=== PATIENT | male | born 1980 | race Caucasian/White ===

== ENCOUNTER 2018-01-06 12:45 | Emergency (ER) | payer OTHER, MEDICARE ==
[2018-01-06] MEDS ORDERED: ACETAMINOPHEN 325 MG TABLET PO ONE (12:49)
--- NOTE | 2018-01-06 13:23 | ER Document Report ---
HPI - HPI Pain Level: 1 Notes: Patient is a 37-year-old male no significant past medical history who presents to the ED complaining of pain to his right fifth metacarpal of the hand status post punching a desk prior to arrival. Patient states that the pain does not radiate. He has not noticed any obvious bruising, but has noticed some swelling to that area. Patient states that he has had a fracture previously in the same area from punching an object in the past. Denies any drug allergies. Denies any headache, fever, URI, sore throat, chest pain, palpitations, syncope , cough, shortness of breath, wheeze, dyspnea, abdominal pain, nausea/vomiting/ diarrhea, urinary retention, dysuria, hematuria, numbness/tingling, muscle paralysis/weakness, or rash. - ROS Systems Reviewed and Negative: Yes All other systems reviewed and negative Past Medical History - Social History Smoking Status: Former Smoker Family History: Reviewed & Not Pertinent Vertical Provider Document - CONSTITUTIONAL Agree With Documented VS: Yes Notes: PHYSICAL EXAMINATION: GENERAL: Well-appearing, well-nourished and in no acute distress. LUNGS: Breath sounds clear to auscultation bilaterally and equal. No wheezes rales or rhonchi. HEART: Regular rate and rhythm without murmurs, rubs, gallops. Musculoskeletal: Rt hand: + mild swelling to the 5th metacarpal distally. + associated tenderness. N/V intact distal. FROM to passive/active. Strength 5+/ 5. No other tenderness to the hand/wrist. Extremities: No cyanosis, clubbing, or edema b/l. Peripheral pulses 2+. Capillary refill less than 3 seconds. NEUROLOGICAL: Normal speech, normal gait. Normal sensory, motor exams PSYCH: Normal mood, normal affect. SKIN: Warm, Dry, normal turgor, no rashes or lesions noted. Course - Re-evaluation Re-evalutation: 01/06/18 16:05 Patient is an afebrile, well-hydrated, 37-year-old male who presents to the ED with a fracture to the 5th 5th metacarpal distally in setting of old fracture. Vitals are acceptable without any significant tachycardia, tachypnea, or hypoxia. PE is otherwise unremarkable for any neurovascular compromise, obvious tendon/ligament rupture, open fracture, septic joint. See XR result. Splint applied today. Patient given tylenol PO. Patient is nontoxic- appearing. No other labs or imaging warranted at this time based on H&P. Pt given norco dispense pack. Conservative measures otherwise for symptoms. Recheck with your PCM in 3-5 days. Call orthopedics tomorrow to schedule an appointment for further evaluation and management. Return to the ED with any worsening/concerning symptoms otherwise as reviewed in discharge. Patient is in agreement. delay in care/treatment due to >2hr delay with Radiology (?busy) - Vital Signs Vital signs: Temp Pulse Resp BP Pulse Ox 98.4 F 81 16 128/86 H 96 01/06/18 12:58 01/06/18 12:58 01/06/18 12:58 01/06/18 12:58 01/06/18 12:58 Procedures - Immobilization Right Hand Time completed: 16:05 Pre-Proc Neuro Vasc Exam: Normal Immobilizer type: Ulnar - ulnar gutter Performed by: PCT Post-Proc Neuro Vasc Exam: Normal, Unchanged from pre-exam Discharge - Discharge Clinical Impression: Closed fracture of 5th metacarpal Qualifiers: Encounter type: initial encounter Metacarpal location: unspecified portion of metacarpal Fracture alignment: nondisplaced Laterality: right Qualified Code(s) : S62.306A - Unspecified fracture of fifth metacarpal bone, right hand, initial encounter for closed fracture Condition: Stable Disposition: HOME, SELF-CARE Instructions: Splint Precautions ([facility]) Additional Instructions: Rest, Ice, Compression, Elevation Use splint as directed Tylenol/ibuprofen as needed F/u with your PCP in 3-5 days for a recheck Call orthopedics tomorrow to schedule an appointment for further evaluation and management Return to the ED with any worsening symptoms and/or development of fever, headache, chest pain, palpitations, syncope, shortness of breath, trouble breathing, abdominal pain, n/v/d, muscle weakness/paralysis, numbness/tingling, swelling, redness, or other worsening symptoms that are concerning to you. Forms: Elevated Blood Pressure Referrals: SEKOU IRVING MD [Primary Care Provider] - Follow up as needed [facility] [Provider Group] - Follow up in 3-5 days
--- NOTE | 2018-01-06 15:48 | RADIOLOGY REPORT (SQ) ---
EXAM DESCRIPTION: HAND RIGHT 3 VIEWS COMPLETED DATE/TIME: 01/06/2018 1:26 pm REASON FOR STUDY: rt hand pain s/p punching desk COMPARISON: None. EXAM PARAMETERS: NUMBER OF VIEWS: Three views. TECHNIQUE: AP, lateral and oblique radiographic images acquired of the right hand. LIMITATIONS: None. FINDINGS: MINERALIZATION: Normal. BONES: Distal 5th metacarpal fracture which has an intra-articular component, no significant displace ment, this fracture appears in a region of an old healed fracture, seen best on the oblique projectio n. No other acute fracture identified. JOINTS: No effusion. SOFT TISSUES: Mild soft tissue swelling. No radiopaque foreign body. OTHER: No other significant finding. IMPRESSION: Distal 5th metacarpal fracture which has an intra-articular component, no significant di splacement, this fracture appears in a region of an old healed fracture, seen best on the oblique pro jection. No other acute fracture identified. TECHNICAL DOCUMENTATION: JOB ID: [id number] [id number] 2010 [employer]- All Rights Reserved Reading location - IP/workstation name: [email or web address]
[2018-01-06] MEDS ORDERED: HYDROCODONE/ACETAMINOPHEN 5-325 MG (6 TAB/ER DISP) PO PRN (15:56)
[2018-01-06 16:28] VITALS: BP 117/76
== END 2018-01-06 16:27 | disposition home or self-care (01) ==
LOC: ER 12:45
DX: S62.306A Unspecified fracture of fifth metacarpal bone, right hand, initial encounter for closed fracture (principal); W22.09XA Striking against other stationary object, initial encounter
CPT/HCPCS: 99283